=== PATIENT | female | born 1955 | race Native Hawaiian/Other Pacific Islander ===

== ENCOUNTER 2020-12-18 20:26 | Inpatient (IN) | payer MEDICAID ==
[~2020-12-18] VITALS: Ht 152.4 cm; Wt 59.1 kg
[2020-12-18 21:35] LABS: COLLECTION METHOD CLEAN CATCH
[2020-12-18 21:43] LABS: PH 6 (5-8); SQUAMOUS EPITHELIAL None Seen /hpf; URINE APPEARANCE Clear; URINE BACTERIA None Seen /hpf; URINE BILIRUBIN Negative (NEGATIVE); URINE BLOOD 1+ (NEGATIVE); URINE COLOR Straw; URINE GLUCOSE Negative (NEGATIVE); URINE KETONE Negative (NEGATIVE); URINE LEUKOCYTE ESTERASE Negative (NEGATIVE); URINE NITRATE Negative (NEGATIVE); URINE PROTEIN(semi-quant) 3+ (NEGATIVE); URINE RBC 0-2 /hpf; URINE UROBILINOGEN Negative (NEGATIVE)
[2020-12-18] MEDS ORDERED: COREG 6.256.25 MG/TA PO (21:51)
[2020-12-18] MEDS ORDERED: GLUCOPHAGE500 MG/TAB PO (21:51)
[2020-12-18 21:56] LABS: ALANINE AMINOTRANSFERASE 43 U/L (4-34); ALBUMIN 3.8 gm/dL (3.5-5.0); ALKALINE PHOSPHATASE 120 U/L (50-136); ANION GAP 9 mmol/L (7-16); AST,SGOT 64 U/L (15-37); BILIRUBIN,TOTAL 0.3 mg/dL (0.0-1.0); BLOOD UREA NITROGEN 47 mg/dL (7-17); C-REACTIVE PROTEIN < 0.5 mg/dL (0.0-0.9); CALCIUM 9.1 mg/dL (8.4-10.2); CARBON DIOXIDE 22 mmol/L (22-30); CHLORIDE 109 mmol/L (98-107); CREATININE, serum 4.15 (0.52-1.25); GLUCOSE 98 mg/dL (74-106); LIPASE 324 U/L (23-300); POTASSIUM 5.6 mmol/L (3.4-5.0); SODIUM 140 mmol/L (137-145); TOTAL PROTEIN 7.1 gm/dL (6.4-8.2)
[2020-12-18 22:02] LABS: BASO % 0.5 % (0.0-2.0); EOS # 0.2 (0.0-0.7); EOS % 4.2 % (0-4.0); GRAN # 2.8 (1.4-6.5); GRAN % 48.9 % (42.2-75.2); LYMPH # 2.2 (1.2-3.4); LYMPH % 37.8 % (20.0-51.0); MEAN CELL VOLUME 97 fl (80.0-100.0); MEAN CORPUSCULAR HGB CONC 32 g/dl (33.0-37.0); MEAN PLATELET VOLUME 10.8 fl (7.4-10.4); MONO # 0.5 (0.1-0.6); MONO % 8.4 % (1.7-9.3); PLATELET COUNT 116 K/mm3 (130-400); RED BLOOD COUNT 3.02 M/mm3 (4.10-5.30); REDCELL DISTRIBUTION WIDTH-CV 12.7 % (11.5-14.5); TROPONIN-I < 0.012 ng/mL (0.000-0.035)
[2020-12-18 22:05] LABS: HEMATOCRIT 29.4 % (37.0-47.0); HEMOGLOBIN 9.5 g/dl (12.5-16.0); MEAN CORPUSCULAR HEMOGLOBIN 31 pg (27.0-31.0)
[2020-12-19 01:25] VITALS: BP 198/77; PULSE 108; TEMP 97.8
[2020-12-19 03:57] VITALS: BP 186/76; PULSE 89; TEMP 98.9
--- NOTE | 2020-12-19 06:15 | NUR ---
Debbie gets up this morning to go to the bathroom standby assist. She denies dizziness or SOB. Her blood pressure is still high from 198/77 to 186/76. She has hydralazine PRN oral ordered but I didn't give it because I dont her blood pressure to shoot down. She is asymptomatic, she have BP meds this morning schedule. She needs a urine sample that wasn't able to collect because she didn't able to catch in the urine collection catch. I told her next time we need to get a sample to send in the lab for urine protein check. She verbalized understanding.
[2020-12-19 07:17] VITALS: BP 151/66; PULSE 76; TEMP 98.8
[2020-12-19 07:47] LABS: BASO % 0.7 % (0.0-2.0); EOS # 0.2 (0.0-0.7); EOS % 4.1 % (0-4.0); GRAN # 2.9 (1.4-6.5); GRAN % 49.8 % (42.2-75.2); LYMPH # 2.2 (1.2-3.4); LYMPH % 38.5 % (20.0-51.0); MEAN CELL VOLUME 96 fl (80.0-100.0); MEAN CORPUSCULAR HGB CONC 34 g/dl (33.0-37.0); MEAN PLATELET VOLUME 11.2 fl (7.4-10.4); MONO # 0.4 (0.1-0.6); MONO % 6.7 % (1.7-9.3); PLATELET COUNT 102 K/mm3 (130-400); RED BLOOD COUNT 2.89 M/mm3 (4.10-5.30); REDCELL DISTRIBUTION WIDTH-CV 12.7 % (11.5-14.5)
[2020-12-19 07:52] LABS: HEMATOCRIT 27.7 % (37.0-47.0); HEMOGLOBIN 9.3 g/dl (12.5-16.0); MEAN CORPUSCULAR HEMOGLOBIN 32 pg (27.0-31.0)
--- NOTE | 2020-12-19 08:00 | NUR ---
PATIENT IS A&O HOWEVER THERE IS A LANGUAGE BARRIER AT TIMES. PATIENT IS PRIMARILY YAKUT SPEAKING AND ONLY SPEAKS A LITTLE MONGOLIAN. NOTED ELEVATED B/P OF 186/76, SCHEDULED B/P MEDS GIVEN. ALL OTHER VSS AND ON TELE. NO C/O N/V. TOLERATING ADA DIET. AM MEDS GIVEN. HEAD TO TOE ASSESSMENT COMPLETE. RIGHT AC IV TO INT. NO OTHER NEEDS AT THIS TIME. CALL LIGHT IN REACH.
[2020-12-19 08:02] LABS: ALBUMIN 3.6 gm/dL (3.5-5.0); BILIRUBIN,TOTAL 0.3 mg/dL (0.0-1.0); CALCIUM 9.2 mg/dL (8.4-10.2); CREATININE, serum 3.94 (0.52-1.25); POTASSIUM 5.1 mmol/L (3.4-5.0); TOTAL PROTEIN 6.8 gm/dL (6.4-8.2)
--- NOTE | 2020-12-19 10:50 | NUR ---
Initial visit; Patient graciously thanked Escalator Installer for visiting her and was pleased to receive prayer and Escalator Installer's offer of God's blessings.
--- NOTE | 2020-12-19 11:12 | NUR ---
The patient primarily speaks Sri Lankan. SW contacted the patient's son, Power (ph#[phone]), to discuss discharge plan. The patient lives in [place] with her older son, Pedro, [id number], and grandchildren. Power reports that the patient is independent with ADLs and has a cane and walker. The patient receives primary care at the [facility] in [place] and her medications from [facility] and [place]. Power reports no difficulties obtaining her meds. Power reports that he does not think that the patient has a DPOA-HC. He reports that she is and has five children: Power, Pedro, Papito, Renetta, and Janina. Power reports that the plan is for the patient to return back to his brother's home upon discharge. SW to follow as needed. *Discharge plan: home with family*
[2020-12-19 12:03] VITALS: BP 103/51; PULSE 70; TEMP 98
[2020-12-19 15:15] VITALS: BP 140/64; PULSE 69; TEMP 97.9
[2020-12-19 18:47] VITALS: BP 165/79; PULSE 68; TEMP 97.4
--- NOTE | 2020-12-19 19:41 | NUR ---
RECEIVED CHANGE OF SHIFT REPORT FROM DAY SHIFT NURSE.
[2020-12-20] VITALS (7 sets, daily range): BP systolic 113–175; BP diastolic 52–77; PULSE 61–70; TEMP 97.3–98.8
--- NOTE | 2020-12-20 07:03 | NUR ---
CHANGE OF SHIFT REPORT GIVEN TO DAY SHIFT NURSE, GENOVEVA DIMAS.
[2020-12-20 07:08] LABS: BASO % 0.8 % (0.0-2.0); EOS # 0.2 (0.0-0.7); EOS % 4.4 % (0-4.0); GRAN % 39.4 % (42.2-75.2); LYMPH # 2.3 (1.2-3.4); LYMPH % 47.3 % (20.0-51.0); MEAN CELL VOLUME 96 fl (80.0-100.0); MEAN CORPUSCULAR HGB CONC 34 g/dl (33.0-37.0); MEAN PLATELET VOLUME 10.9 fl (7.4-10.4); MONO # 0.4 (0.1-0.6); MONO % 7.9 % (1.7-9.3); PLATELET COUNT 89 K/mm3 (130-400); RED BLOOD COUNT 2.62 M/mm3 (4.10-5.30); REDCELL DISTRIBUTION WIDTH-CV 12.6 % (11.5-14.5)
[2020-12-20 07:11] LABS: HEMATOCRIT 25.2 % (37.0-47.0); HEMOGLOBIN 8.5 g/dl (12.5-16.0); MEAN CORPUSCULAR HEMOGLOBIN 32 pg (27.0-31.0)
[2020-12-20 07:14] LABS: ALANINE AMINOTRANSFERASE 45 U/L (4-34); ALBUMIN 3.2 gm/dL (3.5-5.0); ALKALINE PHOSPHATASE 121 U/L (50-136); ANION GAP 6 mmol/L (7-16); AST,SGOT 47 U/L (15-37); BILIRUBIN,TOTAL < 0.1 mg/dL (0.0-1.0); BLOOD UREA NITROGEN 55 mg/dL (7-17); CALCIUM 8.6 mg/dL (8.4-10.2); CARBON DIOXIDE 25 mmol/L (22-30); CHLORIDE 108 mmol/L (98-107); CREATININE, serum 4.45 (0.52-1.25); GLUCOSE 121 mg/dL (74-106); POTASSIUM 4.7 mmol/L (3.4-5.0); SODIUM 140 mmol/L (137-145); TOTAL PROTEIN 6.2 gm/dL (6.4-8.2)
[2020-12-20 09:29] LABS: IRON,SERUM 91 ug/dL (35-150)
[2020-12-20 09:38] LABS: TOTAL IRON BINDING CAPACITY 242 ug/dL (265-497)
--- NOTE | 2020-12-20 09:42 | NUR ---
Pt doing well this morning, has no complaints of pain. She has been up walking with therapy and has had breakfast. No needs verbalized. Pt did ask about going home. I will try to get ahold of her son for translation, if not I will use translation line.
--- NOTE | 2020-12-20 14:01 | NUR ---
Notified Dr Vazquez that we have received records from [facility] on pt
--- NOTE | 2020-12-20 18:32 | NUR ---
Pt has done well throughout the day. Her son was on the phone to help translate. Pt has had no complaints, waiting on her dinner at this time
--- NOTE | 2020-12-20 20:00 | NUR ---
Patient in bed resting. Alert and oriented, answers questions appropriately. Patient up independently in room with steady gait. Denies pain at this time. INT to right AC without complications. Denies further needs at this time.
[2020-12-21 03:43] VITALS: BP 146/65; PULSE 61; TEMP 97.6
[2020-12-21 06:18] LABS: BASO % 0.8 % (0.0-2.0); EOS # 0.3 (0.0-0.7); EOS % 5.1 % (0-4.0); GRAN # 2.2 (1.4-6.5); GRAN % 43.8 % (42.2-75.2); LYMPH # 2.2 (1.2-3.4); LYMPH % 43.4 % (20.0-51.0); MEAN CELL VOLUME 96 fl (80.0-100.0); MEAN CORPUSCULAR HGB CONC 33 g/dl (33.0-37.0); MEAN PLATELET VOLUME 10.9 fl (7.4-10.4); MONO # 0.3 (0.1-0.6); MONO % 6.7 % (1.7-9.3); PLATELET COUNT 103 K/mm3 (130-400); RED BLOOD COUNT 2.76 M/mm3 (4.10-5.30); REDCELL DISTRIBUTION WIDTH-CV 12.6 % (11.5-14.5)
[2020-12-21 06:27] LABS: HEMATOCRIT 26.5 % (37.0-47.0); HEMOGLOBIN 8.8 g/dl (12.5-16.0); MEAN CORPUSCULAR HEMOGLOBIN 32 pg (27.0-31.0)
[2020-12-21 06:32] LABS: ALANINE AMINOTRANSFERASE 46 U/L (4-34); ALBUMIN 3.4 gm/dL (3.5-5.0); ALKALINE PHOSPHATASE 138 U/L (50-136); ANION GAP 8 mmol/L (7-16); AST,SGOT 42 U/L (15-37); BILIRUBIN,TOTAL < 0.1 mg/dL (0.0-1.0); BLOOD UREA NITROGEN 62 mg/dL (7-17); CALCIUM 8.6 mg/dL (8.4-10.2); CARBON DIOXIDE 22 mmol/L (22-30); CHLORIDE 107 mmol/L (98-107); CREATININE, serum 4.54 (0.52-1.25); GLUCOSE 114 mg/dL (74-106); POTASSIUM 4.5 mmol/L (3.4-5.0); SODIUM 137 mmol/L (137-145); TOTAL PROTEIN 6.6 gm/dL (6.4-8.2)
--- NOTE | 2020-12-21 06:34 | NUR ---
Patient doing well throughout the day. Minimal needs. Independent in room. Denies further needs at this time. Will report off to day shift.
[2020-12-21 08:01] VITALS: BP 167/64; PULSE 58; TEMP 97.8
--- NOTE | 2020-12-21 09:26 | NUR ---
PT AMBULATING IN HALLWAY WITH THERAPY. EATING AND DRINKING WITH OUT N/V. ASSESSMENTS COMPLETE. PT DENIES NEEDS AT THIS TIME.
[2020-12-21] MEDS ORDERED: COREG12.5 MG PO (11:07)
[2020-12-21] MEDS ORDERED: PROCARDIA XL 3030 MG PO (11:09)
--- NOTE | 2020-12-21 12:58 | NUR ---
DISCHARGE INSTRUCTIONS REVIEWED WITH PT AND FAMILY. PT LEFT UNIT PER WHEEL CHAIR WITH STAFF AND FAMILY.
== END 2020-12-21 12:59 | disposition home or self-care (01) | DRG 305 ==
LOC: COL.ER 20:26 → SURG 22:35
PROVIDERS: Nurse Practitioner Primary Care; ADMIT Internal Medicine Nephrology
DX: I16.0 Hypertensive urgency (principal); E11.22 Type 2 diabetes mellitus with diabetic chronic kidney disease; I12.9 Hypertensive chronic kidney disease with stage 1 through stage 4 chronic kidney disease, or unspecified chronic kidney disease; L89.151 Pressure ulcer of sacral region, stage 1; N18.9 Chronic kidney disease, unspecified; D63.1 Anemia in chronic kidney disease; E87.5 Hyperkalemia; R10.9 Unspecified abdominal pain; Z79.84 Long term (current) use of oral hypoglycemic drugs; Z99.2 Dependence on renal dialysis; Z90.710 Acquired absence of both cervix and uterus
CPT/HCPCS: OP; G0378; J1815

== ENCOUNTER 2020-12-28 20:01 | Inpatient (IN) | payer MEDICAID ==
[~2020-12-28] VITALS: Ht 157.5 cm; Wt 60.7 kg
[~2020-12-28 20:01] MED LIST: COREG 6.256.25 MG/TA PO; COREG12.5 MG PO; GLUCOPHAGE500 MG/TAB PO; PROCARDIA XL 3030 MG PO
[2020-12-28 20:47] LABS: BASO # 0.1 (0.0-0.2); BASO % 1.1 % (0.0-2.0); EOS # 0.3 (0.0-0.7); EOS % 4.9 % (0-4.0); GRAN # 2.9 (1.4-6.5); GRAN % 46.6 % (42.2-75.2); HEMOGLOBIN 10.2 g/dl (12.5-16.0); LYMPH # 2.4 (1.2-3.4); LYMPH % 39.2 % (20.0-51.0); MEAN CELL VOLUME 94 fl (80.0-100.0); MEAN CORPUSCULAR HEMOGLOBIN 32 pg (27.0-31.0); MEAN CORPUSCULAR HGB CONC 34 g/dl (33.0-37.0); MEAN PLATELET VOLUME 10.5 fl (7.4-10.4); MONO # 0.5 (0.1-0.6); PLATELET COUNT 126 K/mm3 (130-400); RED BLOOD COUNT 3.16 M/mm3 (4.10-5.30); REDCELL DISTRIBUTION WIDTH-CV 12.2 % (11.5-14.5)
[2020-12-28 20:48] LABS: HEMATOCRIT 29.7 % (37.0-47.0)
[2020-12-28] MEDS ORDERED: GLUCOPHAGE1000 MG PO (20:53)
[2020-12-28] MEDS ORDERED: ZYLOPRIM 100MG100 MG PO (20:53)
[2020-12-28 20:55] LABS: ALANINE AMINOTRANSFERASE 50 U/L (4-34); ALBUMIN 4.4 gm/dL (3.5-5.0); ALKALINE PHOSPHATASE 121 U/L (50-136); ANION GAP 12 mmol/L (7-16); AST,SGOT 49 U/L (15-37); BILIRUBIN,TOTAL 0.5 mg/dL (0.0-1.0); BLOOD UREA NITROGEN 69 mg/dL (7-17); CALCIUM 9.5 mg/dL (8.4-10.2); CARBON DIOXIDE 18 mmol/L (22-30); CHLORIDE 104 mmol/L (98-107); CREATININE, serum 6.02 (0.52-1.25); GLUCOSE 118 mg/dL (74-106); SODIUM 134 mmol/L (137-145); TOTAL PROTEIN 8.3 gm/dL (6.4-8.2)
[2020-12-28 20:59] LABS: POTASSIUM 5.8 mmol/L (3.4-5.0)
[2020-12-28 21:09] LABS: CREATINE KINASE 76 U/L (30-135)
[2020-12-28 21:11] LABS: C-REACTIVE PROTEIN < 0.5 mg/dL (0.0-0.9); TROPONIN-I < 0.012 ng/mL (0.000-0.035)
[2020-12-28 23:36] VITALS: BP 170/84; PULSE 73; TEMP 97.5
--- NOTE | 2020-12-28 23:36 | NUR ---
Patient arrives to ICU room 4 via ED stretcher. Patient's son, Power, at bedside. Patient is primarily non-Persian speaking; she indicates she would prefer Power translates. Patient arrives on room air. Initial BP is 170/84, all other vitals within normal limits. No fluids or medications infusing. Trista aware of patient's arrival.
--- NOTE | 2020-12-28 23:47 | NUR ---
Received report from ED nurse
[2020-12-29] VITALS (237 sets, daily range): BP systolic 131–155; BP diastolic 71–787; PULSE 69–72; TEMP 97.7–98.3; O2SAT 90–100
--- NOTE | 2020-12-29 | NUR ---
Patient's belongings at bedside include street clothes and shoes. She is wearing gold earrings and has a silver watch. Patient's purse sent home with son, Power.
[2020-12-29] MEDS ORDERED: FORT1000TA PO (00:42)
[2020-12-29 01:17] LABS: CALCIUM 9.4 mg/dL (8.4-10.2); CREATININE, serum 5.98 (0.52-1.25)
[2020-12-29 02:49] LABS: CALCIUM 9.5 mg/dL (8.4-10.2); CREATININE, serum 5.87 (0.52-1.25); POTASSIUM 5.1 mmol/L (3.4-5.0)
[2020-12-29 04:12] LABS: CREATININE, serum 5.83 (0.52-1.25); POTASSIUM 5.2 mmol/L (3.4-5.0)
[2020-12-29 07:24] LABS: CALCIUM 9.2 mg/dL (8.4-10.2); CREATININE, serum 5.73 (0.52-1.25); POTASSIUM 5.2 mmol/L (3.4-5.0)
--- NOTE | 2020-12-29 08:00 | NUR ---
Patient awake and resting in bed; Speaks little bahamian but able to follow simple commands appropriately and make needs known. Assisted up to commode at this time. Denies any concerns at this time; will continue to monitor.
[2020-12-29 08:32] LABS: CALCIUM 9.4 mg/dL (8.4-10.2); CREATININE, serum 6.11 (0.52-1.25); POTASSIUM 5.1 mmol/L (3.4-5.0)
--- NOTE | 2020-12-29 11:10 | NUR ---
Called the translation service to request a permit agent for this patient. Patient's language is rare and they are unable to provide a permit agent for us at this time. Can try again tomorrow. WING Cohen for Dr. Vazquez notified.
--- NOTE | 2020-12-29 11:40 | NUR ---
Updated hugo Steve on plan of care. All quesions and concerns discussed at this time.
--- NOTE | 2020-12-29 12:02 | NUR ---
First visit from the seniour insight manager. No needs right now.
[2020-12-29] MEDS ORDERED: TRADJENTA5 MG PO ×2 (13:24)
--- NOTE | 2020-12-29 15:56 | NUR ---
Patient's son here to take patient home. Patient alert and oriented and in no distress. Discharge paperwork was reviewed with son as patient has limited syrian skills. Transported via wheelchair to ER exit.
--- NOTE | 2020-12-29 16:47 | NUR ---
Coil Winder Strap attempted to contact patient's son, Power to discuss discharge planning and left him a message. Patient discharged home this afternoon with son. JEFF collaborated with RN, Lisa who advised patient is going to be put on a new medication, Tradjenta. JEFF contacted patient's pharmacy, [facility] in [place] and was advised this medication required a prior authorization. JEFF obtained fax number for Hospitalist office and provided it to the Pharmacist at [facility] in . Without the prior authorization, the medication cost is over $500.
[2020-12-29] MEDS ORDERED: THE MEDICINE SH1 DE3 MC (17:27)
[2020-12-29] MEDS ORDERED: TRULICITY0.75 MG/0. SQ (17:27)
== END 2020-12-29 15:52 | disposition home or self-care (01) | DRG 684 ==
LOC: COL.ER 20:01 → MEDICAL 22:47 → ICU 22:47
PROVIDERS: Emergency Medicine; Nurse Practitioner Family; ADMIT Family Medicine
DX: N17.9 Acute kidney failure, unspecified (principal); I12.9 Hypertensive chronic kidney disease with stage 1 through stage 4 chronic kidney disease, or unspecified chronic kidney disease; N18.9 Chronic kidney disease, unspecified; E11.22 Type 2 diabetes mellitus with diabetic chronic kidney disease; M10.9 Gout, unspecified; E87.5 Hyperkalemia; I16.0 Hypertensive urgency; D69.6 Thrombocytopenia, unspecified; D63.1 Anemia in chronic kidney disease; Z79.84 Long term (current) use of oral hypoglycemic drugs; Z20.822 Contact with and (suspected) exposure to COVID-19
CPT/HCPCS: 99233-AI; J0610; J1815; J1940

== ENCOUNTER 2022-03-05 10:29 | Inpatient (IN) | payer SELFPAY ==
[~2022-03-05] VITALS: Ht 157.5 cm; Wt 127.1 kg
[~2022-03-05 10:29] MED LIST changes: +FORT1000TA PO; +GLUCOPHAGE1000 MG PO; +THE MEDICINE SH1 DE3 MC; +TRADJENTA5 MG PO; +TRULICITY0.75 MG/0. SQ; +ZYLOPRIM 100MG100 MG PO
[2022-03-05 12:00] VITALS: BP 152/73; PULSE 68; TEMP 98.2
[2022-03-05] MEDS ORDERED: ULTRAM 50MG TAB50 MG PO (14:58)
[2022-03-05] MEDS ORDERED: COREG 25MG25 MG/TAB PO (15:00)
[2022-03-05] MEDS ORDERED: PROCARDIA XL 6060 MG PO (15:01)
[2022-03-05] MEDS ORDERED: VITAMIN D250 MCG PO (15:02)
[2022-03-05] MEDS ORDERED: MASON NATURAL2000 IU PO (15:07)
[2022-03-05 15:21] VITALS: BP 160/59; PULSE 67; TEMP 97.7
[2022-03-05 15:35] LABS: BASO % 0.5 % (0.0-2.0); EOS # 0.2 K/mm3 (0.0-0.7); EOS % 2.7 % (0.0-4.0); GRAN # 5.4 K/mm3 (1.4-6.5); LYMPH # 1.6 K/mm3 (1.2-3.4); LYMPH % 20.7 % (20.0-51.0); MEAN CELL VOLUME 94 fl (80.0-100.0); MEAN CORPUSCULAR HGB CONC 32 g/dl (33.0-37.0); MEAN PLATELET VOLUME 10.3 fl (7.4-10.4); MONO # 0.5 K/mm3 (0.1-0.6); PLATELET COUNT 139 K/mm3 (130-400); RED BLOOD COUNT 2.64 M/mm3 (4.10-5.30); REDCELL DISTRIBUTION WIDTH-CV 13.9 % (11.5-14.5)
[2022-03-05 15:38] LABS: HEMATOCRIT 24.7 % (37.0-47.0); HEMOGLOBIN 7.9 g/dl (12.5-16.0); MEAN CORPUSCULAR HEMOGLOBIN 30 pg (27-31)
[2022-03-05 16:09] LABS: CALCIUM 7.7 mg/dL (8.4-10.2); CREATININE, serum 9.45 mg/dL (0.57-1.11); PHOSPHOROUS 5.1 mg/dL (2.3-4.7)
[2022-03-05 16:24] LABS: PROTHROMBIN TIME 11.5 SECONDS (9.7-12.8)
[2022-03-05 16:36] LABS: ALBUMIN 2.4 gm/dL (3.4-4.8)
[2022-03-05 19:36] VITALS: BP 166/65; PULSE 67; TEMP 97.9
--- NOTE | 2022-03-05 19:38 | NUR ---
PATIENT RETURNED FROM [facility] CATH PLACEMENT RIGHT IJ. THE PATIENT IS ALERT AND ORIENTED AND WITHOUT DISTRESS AT THIS TIME. BP ELEVATED AT 166/65 WILL MONITOR. CALL LIGHT WITHIN REACH. BED IN LOW POSITION. SLIGHT OOZING OF BLOOD NOTED AT INSERTION SITE. WILL MONITOR.
[2022-03-05 21:20] LABS: IRON,SERUM 183 ug/dL (50-175)
[2022-03-05 21:20] LABS: HEPATITIS B SURFACE ANTIBODY 93.5 (()); HEPATITIS B SURFACE ANTIGEN Negative (Negative); HEPATITIS C VIRUS ANTIBODY Negative (Negative)
[2022-03-05 21:24] VITALS: BP 161/65; PULSE 71; TEMP 97.7
[2022-03-06] VITALS (8 sets, daily range): BP systolic 154–180; BP diastolic 69–76; PULSE 64–72; TEMP 97.7–98.6
[2022-03-06 05:55] LABS: BASO % 0.6 % (0.0-2.0); EOS # 0.2 K/mm3 (0.0-0.7); EOS % 2.9 % (0.0-4.0); GRAN # 4.2 K/mm3 (1.4-6.5); GRAN % 60.3 % (42.2-75.2); LYMPH # 1.9 K/mm3 (1.2-3.4); LYMPH % 28.1 % (20.0-51.0); MEAN CELL VOLUME 91 fl (80.0-100.0); MEAN CORPUSCULAR HGB CONC 33 g/dl (33.0-37.0); MONO # 0.6 K/mm3 (0.1-0.6); PLATELET COUNT 143 K/mm3 (130-400); RED BLOOD COUNT 2.65 M/mm3 (4.10-5.30); REDCELL DISTRIBUTION WIDTH-CV 13.9 % (11.5-14.5)
[2022-03-06 06:17] LABS: HEMATOCRIT 24.1 % (37.0-47.0); MEAN CORPUSCULAR HEMOGLOBIN 30 pg (27-31)
[2022-03-06 06:23] LABS: ALBUMIN 2.3 gm/dL (3.4-4.8); CALCIUM 7.6 mg/dL (8.4-10.2); CREATININE, serum 9.48 mg/dL (0.57-1.11)
[2022-03-06 06:33] LABS: PHOSPHOROUS 5.3 mg/dL (2.3-4.7)
--- NOTE | 2022-03-06 08:50 | NUR ---
Pt assessment complete. Pt getting ready to go to dialysis so will hold off on medications until finished. Pt denies pain. No SOB. [facility] for dialysis at this time.
--- NOTE | 2022-03-06 09:06 | NUR ---
Initial visit; Patient thanked Drafter Tool Design for coming in to offer comfort and prayer for her. Drafter Tool Design wished her well.
--- NOTE | 2022-03-06 16:01 | NUR ---
Professor Of Geography met with patient to discuss discharge planning. Patient confirmed she lives with her son, Pedro in [place] but was unsure who her primary care physician was. Patient encouraged SW to contact her sons, Power (ph#[phone]) or Pedro (ph#[phone]). PT/OT ordered for patient. SW contacted Pedro and was unable to leave a message as his mailbox is full. SW contacted Power to discuss discharge planning. Power confirmed patient lives in with Pedro and advised patient sees Dr. Garcia at [facility] for primary care. Patient obtains medications from [facility] in and uses a walker for ambulation. Patient is normally independent with ADLS and plans to return home at time of discharge. JEFF contacted Mamie Professor Of Geography at [facility] as patient is set up there for TuThSat 1530. JEFF advised patient is showing up as self pay. Mamie advised she thought patient has Medicaid, but upon further investigation, patient's coverage ended in October 2021. Mamie advised she will speak with Dr. Vazquez on how to procede. JEFF emailed Mely Financial Counselor about a Medicaid application. Discharge Plan: Home
--- NOTE | 2022-03-06 20:35 | NUR ---
Initial shift assessment done- denies pain- states at times her legs are sore, Tele on- NSR, Dialysis cath to R chest, dressing/tegaderm intact, will give prn apresoline for SBP >160 at this time, blood sugar 143 at this time-no sliding scale needed.
[2022-03-07 04:10] VITALS: BP 153/67; PULSE 68; TEMP 98.5
--- NOTE | 2022-03-07 04:30 | NUR ---
States her legs have some pain, was just up to bathroom to void, back to bed will give Tylenol as ordered , SCD,s put on patient at this time. B/P stable after PRN Apresoline given at start of shift-
[2022-03-07 06:57] LABS: BASO # 0.1 K/mm3 (0.0-0.2); BASO % 0.8 % (0.0-2.0); EOS # 0.2 K/mm3 (0.0-0.7); EOS % 2.5 % (0.0-4.0); GRAN # 4.5 K/mm3 (1.4-6.5); GRAN % 61.4 % (42.2-75.2); LYMPH # 1.9 K/mm3 (1.2-3.4); LYMPH % 25.8 % (20.0-51.0); MEAN CELL VOLUME 91 fl (80.0-100.0); MEAN CORPUSCULAR HGB CONC 33 g/dl (33.0-37.0); MEAN PLATELET VOLUME 10.1 fl (7.4-10.4); MONO # 0.7 K/mm3 (0.1-0.6); MONO % 9.2 % (1.7-9.3); PLATELET COUNT 106 K/mm3 (130-400); RED BLOOD COUNT 2.64 M/mm3 (4.10-5.30); REDCELL DISTRIBUTION WIDTH-CV 13.7 % (11.5-14.5)
[2022-03-07 07:01] LABS: HEMATOCRIT 23.9 % (37.0-47.0); HEMOGLOBIN 7.9 g/dl (12.5-16.0); MEAN CORPUSCULAR HEMOGLOBIN 30 pg (27-31)
[2022-03-07 07:06] LABS: ALBUMIN 2.3 gm/dL (3.4-4.8); CALCIUM 7.7 mg/dL (8.4-10.2); CREATININE, serum 7.48 mg/dL (0.57-1.11); PHOSPHOROUS 4.9 mg/dL (2.3-4.7); POTASSIUM 4.5 mmol/L (3.5-4.5)
[2022-03-07 07:47] VITALS: BP 154/62; PULSE 65; TEMP 97.7
--- NOTE | 2022-03-07 10:46 | NUR ---
Follow-up visit; Debbie looks as if she is feeling better and when Potato Chip Sorter mentioned this to her she smiled and thanked Potato Chip Sorter. Potato Chip Sorter offered a [place] for patient and will continue to check in on her. She thanked Potato Chip Sorter for visit.
--- NOTE | 2022-03-07 14:35 | NUR ---
Shop Tech collaborated with PERLA Baker about patient's self pay status. JEFF updated that according to what JEFF Hatch found, patient's Medicaid dropped off in October. JEFF is unsure the reason. JEFF consulted Mely Financial Counselor who advised she would be able to assist with a Medicaid application today. JEFF contacted JEFF Hatch at [facility] and left a message. PT worked with patient today and recommended Home vs SNF. JEFF contacted PT and advised patient would not be able to go to SNF as she is self pay.
--- NOTE | 2022-03-07 15:30 | NUR ---
Insurance Application Investigator collaborated with Mamie about patient. JEFF advised she will follow up to ensure Medicaid application was submitted. aMmie is working on a release of information for patient so that she can assist with follow up on the Medicaid application after discharge.
[2022-03-07 15:42] VITALS: BP 129/65; PULSE 70; TEMP 97.7
[2022-03-07 18:56] VITALS: BP 137/58; PULSE 66; TEMP 98.2
--- NOTE | 2022-03-07 22:17 | NUR ---
Patient assessed around 193. Denies pain and discomfort. HD catheter to right chest. Denies upset stomach. Patient voices no questions, needs, or concerns at this time. In bed with call light within reach. High fall risk precautions in place. Bed alarm on.
[2022-03-07 23:41] VITALS: BP 154/61; PULSE 66; TEMP 98.5
[2022-03-08 03:48] VITALS: BP 147/57; PULSE 65; TEMP 98.8
--- NOTE | 2022-03-08 04:56 | NUR ---
Patient has denied having pain and discomfort this shift. Voices no questions, needs, or concerns at this time. In bed with call light within reach. High fall risk precautions in place.
[2022-03-08 06:41] LABS: BASO % 0.5 % (0.0-2.0); EOS # 0.2 K/mm3 (0.0-0.7); EOS % 2.7 % (0.0-4.0); GRAN # 4.4 K/mm3 (1.4-6.5); GRAN % 58.6 % (42.2-75.2); LYMPH # 1.8 K/mm3 (1.2-3.4); LYMPH % 24.5 % (20.0-51.0); MEAN CELL VOLUME 91 fl (80.0-100.0); MEAN CORPUSCULAR HGB CONC 33 g/dl (33.0-37.0); MEAN PLATELET VOLUME 10.4 fl (7.4-10.4); MONO % 13.3 % (1.7-9.3); PLATELET COUNT 86 K/mm3 (130-400); RED BLOOD COUNT 2.57 M/mm3 (4.10-5.30); REDCELL DISTRIBUTION WIDTH-CV 13.5 % (11.5-14.5)
[2022-03-08 06:46] LABS: HEMATOCRIT 23.5 % (37.0-47.0); HEMOGLOBIN 7.8 g/dl (12.5-16.0); MEAN CORPUSCULAR HEMOGLOBIN 30 pg (27-31)
[2022-03-08 06:57] LABS: ALBUMIN 2.3 gm/dL (3.4-4.8); CREATININE, serum 4.09 mg/dL (0.57-1.11); PHOSPHOROUS 3.6 mg/dL (2.3-4.7); POTASSIUM 4.3 mmol/L (3.5-4.5)
[2022-03-08 07:55] VITALS: BP 155/60; PULSE 64; TEMP 98
--- NOTE | 2022-03-08 09:00 | NUR ---
Patient is sittin up in the chair, alert and oriented x 4, VSS. States she has not been able to sleep, not only in the hostpital but for several days. Denies pain, nausea or vomiting, SOB, or dizziness. She still feels fatigue. She is wondering why she can not walk as she used to do without walker. Telementry in place, NSR. Assessment completed, meds provided. No other needs at this time. Call light within reach.
--- NOTE | 2022-03-08 10:14 | NUR ---
Follow-up visit; Patient thanked Level Vial Sealer for looking in on her again and offering Blessings and wishing her well.
[2022-03-08] MEDS ORDERED: TUMS ULTRA ST1000 MG PO (10:28)
--- NOTE | 2022-03-08 12:34 | NUR ---
Patient will be discharged home today. Chief Scientist met with patient and her son, Pedro who confirms he will take patient home today. JEFF contacted Mely Financial Counselor who will come up and meet with patient and Pedro to complete Medicaid application. JEFF spoke with PERLA Cohen who is having bedside RN have patient sign release of information for JEFF Hatch. Patient's son, Pedro advised Mamie tried to call him and he will return her call as soon as he can.
[2022-03-08 13:13] VITALS: BP 116/78; PULSE 87; TEMP 98.3
[2022-03-08 16:36] VITALS: BP 116/77; PULSE 79; TEMP 98
--- NOTE | 2022-03-08 17:09 | NUR ---
Patient and son received discharge information, all questions answered. IV access discontinued. Cath access removed by Dr Gilbert. Pt was taken by wheelchair by staff.
== END 2022-03-08 17:00 | disposition home or self-care (01) | DRG 673 ==
LOC: MEDICAL 10:29
PROVIDERS: Registered Nurse; Surgery; ADMIT Internal Medicine Nephrology
PROC: 02H633Z Insertion of Infusion Device into Right Atrium, Percutaneous Approach (ICD-10-PCS; 2022-03-05)
PROC: 0JH63XZ Insertion of Tunneled Vascular Access Device into Chest Subcutaneous Tissue and Fascia, Percutaneous Approach (ICD-10-PCS; principal; 2022-03-05 17:30)
PROC: 5A1D70Z Performance of Urinary Filtration, Intermittent, Less than 6 Hours Per Day (ICD-10-PCS; 2022-03-07)
DX: I12.0 Hypertensive chronic kidney disease with stage 5 chronic kidney disease or end stage renal disease (principal); N18.6 End stage renal disease; E11.22 Type 2 diabetes mellitus with diabetic chronic kidney disease; E87.5 Hyperkalemia; D63.1 Anemia in chronic kidney disease; Z99.2 Dependence on renal dialysis; Z90.710 Acquired absence of both cervix and uterus
CPT/HCPCS: C1751; J1644; J1756; J2405; J7030; Q5105

== ENCOUNTER → 2022-08-22 | Outpatient (CLI) | payer MEDICAID ==
[~2022-08-22] MED LIST changes: +COREG 25MG25 MG/TAB PO; +MASON NATURAL2000 IU PO; +PROCARDIA XL 6060 MG PO; +TUMS ULTRA ST1000 MG PO; +ULTRAM 50MG TAB50 MG PO; +VITAMIN D250 MCG PO
== END ==
LOC: COL.RAD 10:15
DX: N18.6 End stage renal disease (principal); Z99.2 Dependence on renal dialysis

== ENCOUNTER → 2022-10-24 | Outpatient (CLI) | payer MEDICAID | LOC: COL.RAD 09:03 | DX: N18.6 End stage renal disease (principal); Z99.2 Dependence on renal dialysis ==